=== PATIENT | female | born 1980 | race Caucasian/White ===

== ENCOUNTER 2018-01-04 22:02 | Emergency (ER) | payer OTHER ==
[2018-01-04] MEDS ORDERED: IBUPROFEN 400 MG TAB ONE (22:40)
--- NOTE | 2018-01-04 22:43 | ER ---
Nurse's Notes [facility] Name: Steph Gr Age: 37 yrs Sex: Female : 1980 Arrival Date: 01/04/2018 Time: 22:03 Bed 17 Private MD: Zaira Chris H Diagnosis: Sprain of ankle-Right Presentation: 01/04 22:13 Presenting complaint: Patient states: approx 90 minutes ago she fell injuring her right bb ankle denies hitting her head or LOC. Transition of care: patient was not received from another setting of care. Onset of symptoms was January 04, 2018. Risk Assessment: Do you want to hurt yourself or someone else? Patient reports no desire to harm self or others. Initial Sepsis Screen: Does the patient meet any 2 criteria? No. Patient's initial sepsis screen is negative. Does the patient have a suspected source of infection? No. Patient's initial sepsis screen is negative. Care prior to arrival: None. 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 - Social history:: Smoking status: Patient/guardian denies using tobacco, Patient/guardian denies using alcohol, street drugs. - Ebola Screening: : No symptoms or risks identified at this time. Screenin:21 Abuse screen: Denies threats or abuse. Denies injuries from another. Nutritional cc3 screening: No deficits noted. Tuberculosis screening: No symptoms or risk factors identified. Fall Risk Fall in past 12 months (25 points). Ambulatory Aid- Crutches/Cane/Walker (15 pts). Gait- Weak (10 pts.). Mental Status- Oriented to own ability (0 pts). Assessment: 22:21 General: Appears in no apparent distress. comfortable, Behavior is calm, cooperative, cc3 appropriate for age. Pain: Complains of pain in right foot and ankle pain Quality of pain is described as aching. Neuro: Level of Consciousness is awake, alert, obeys commands, Oriented to person, place, time, situation, Appropriate for age. Cardiovascular: Denies chest pain. Respiratory: Airway is patent Respiratory effort is even, unlabored, Respiratory pattern is regular, symmetrical. GI: Abdomen is round non-distended. : No signs and/or symptoms were reported regarding the genitourinary system. EENT: No signs and/or symptoms were reported regarding the EENT system. Derm: Skin is intact, Skin is dry. Musculoskeletal: Reports pain in right foot and ankle pain. 22:55 Reassessment: Patient appears in no apparent distress at this time. Patient and/or cc3 family updated on plan of care and expected duration. Pain level reassessed. Patient is alert, oriented x 3, equal unlabored respirations, skin warm/dry/pink. Patient discharged home with prescription given. No IV cannula in situ. Patient left ER vitally stable using her own assistive walking device and with her friend. Vital Signs: 22:17 BP 154 / 86; Pulse 110; Resp 18 S; Temp 99.1(O); Pulse Ox 100% on R/A; Weight 67.59 kg bb (R); Height 5 ft. 6 in. (167.64 cm) (R); Pain 7/10; 22:17 Body Mass Index 24.05 (67.59 kg, 167.64 cm) bb ED Course: 22:03 Patient arrived in ED. ds1 22:03 Zaira Chris DO is Private Physician. ds1 22:13 Triage completed. bb 22:17 Arm band placed on Patient placed in an exam room, on a stretcher, on pulse oximetry. bb Affected limb iced. Affected limb elevated. 22:18 X-ray ordered. bb 22:21 Arvin Block, RN is Primary Nurse. bp 22:21 Patient has correct armband on for positive identification. Bed in low position. Call cc3 light in reach. Side rails up X 1. Adult w/ patient. 22:24 Hesham Ontiveros PA is PHCP. cp 22:24 Hesham Jenkins MD is Attending Physician. cp 22:24 XRAY Ankle RIGHT 3 view In Process Unspecified. EDMS 22:41 Judd Harkins MD is Referral Physician. cp 22:55 No provider procedures requiring assistance completed. Patient did not have IV access cc3 during this emergency room visit. Administered Medications: 22:35 Drug: Ibuprofen 800 mg Route: PO; cc3 22:50 Follow up: Response: No adverse reaction; Pain is decreased cc3 Outcome: 22:42 Discharge ordered by MD. cp 22:55 Discharged to home with friend. cc3 22:55 Condition: stable 22:55 Discharge instructions given to patient, friend, Instructed on discharge instructions, follow up and referral plans. medication usage, Demonstrated understanding of instructions, follow-up care, medications, Prescriptions given X 1. 23:06 Patient left the ED. cc3 Signatures: Dispatcher [employer] EDNM Bautista Ne ds1 Candy Redmond, RN RN bb Hesham Ontiveros, Arvin Franklin cp, RN RN bp Mitzi Damon cc3
--- NOTE | 2018-01-04 22:43 | EDPHYS ---
Physician Documentation [facility] Name: Steph Gr Age: 37 yrs Sex: Female : 1980 Arrival Date: 01/04/2018 Time: 22:03 Bed 17 Private MD: Zaira Chris H ED Physician Hesham Jenkins HPI: 01/04 22:30 This 37 yrs old Female presents to ER via Ambulatory with complaints of Fall cp Injury. 22:30 Details of fall: The patient fell from an upright position, while walking. Onset: The cp symptoms/episode began/occurred today. Associated injuries: The patient sustained right ankle. Severity of symptoms: in the emergency department the symptoms are unchanged. 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 - Social history:: Smoking status: Patient/guardian denies using tobacco, Patient/guardian denies using alcohol, street drugs. - Ebola Screening: : No symptoms or risks identified at this time. ROS: 22:35 Constitutional: Negative for body aches, chills, fever, poor PO intake. cp 22:35 Eyes: Negative for injury, pain, redness, and discharge. cp 22:35 Neck: Negative for pain with movement, pain at rest, stiffness. 22:35 Respiratory: Negative for cough, shortness of breath, wheezing. 22:35 Abdomen/GI: Negative for abdominal pain, nausea, vomiting, and diarrhea. 22:35 Back: Negative for pain at rest, pain with movement, radiated pain. 22:35 MS/extremity: Positive for pain, tenderness, of the right ankle. 22:35 All other systems are negative. Exam: 22:39 Head/Face: Normocephalic, atraumatic. cp 22:39 Constitutional: The patient appears in no acute distress, alert, awake, well developed, well nourished. 22:39 Eyes: Periorbital structures: appear normal, Conjunctiva: normal, no exudate, no injection, Lids and lashes: appear normal, bilaterally. 22:39 ENT: External ear(s): are unremarkable, Nose: is normal, Mouth: Lips: moist, Oral mucosa: moist, Posterior pharynx: is normal, airway is patent. 22:39 Chest/axilla: Inspection: normal. 22:39 Cardiovascular: Rate: tachycardic, Rhythm: regular. 22:39 Respiratory: the patient does not display signs of respiratory distress, Respirations: normal, no use of accessory muscles, no retractions, no splinting, no tachypnea, labored breathing, is not present. 22:39 Abdomen/GI: Exam negative for discomfort, distension, guarding, Inspection: abdomen appears normal. 22:39 Musculoskeletal/extremity: Extremities: grossly normal except: noted in the right ankle: pain, tenderness, There is no evidence of decreased ROM, deformity, Perfusion: the extremity is normally perfused throughout, Sensation intact. 22:39 Skin: cellulitis, is not appreciated, no rash present. Vital Signs: 22:17 BP 154 / 86; Pulse 110; Resp 18 S; Temp 99.1(O); Pulse Ox 100% on R/A; Weight 67.59 kg bb (R); Height 5 ft. 6 in. (167.64 cm) (R); Pain 7/10; 22:17 Body Mass Index 24.05 (67.59 kg, 167.64 cm) bb MDM: 22:24 Patient medically screened. cp 22:30 Differential diagnosis: fracture, sprain, dislocation. cp 22:41 Data reviewed: vital signs, nurses notes, radiologic studies, plain films. cp 22:41 Test interpretation: by ED physician or midlevel provider: plain radiologic studies. cp Counseling: I had a detailed discussion with the patient and/or guardian regarding: the historical points, exam findings, and any diagnostic results supporting the discharge/admit diagnosis, radiology results, to return to the emergency department if symptoms worsen or persist or if there are any questions or concerns that arise at home. Response to treatment: the patient's symptoms have mildly improved after treatment, and as a result, I will discharge patient. 01/04 22:10 Order name: XRAY Ankle RIGHT 3 view bb 01/04 22:34 Order name: Aircast Ankle Splint; Complete Time: 22:54 cp 01/04 22:34 Order name: Neo wrap-joint; Complete Time: 22:54 cp Administered Medications: 22:35 Drug: Ibuprofen 800 mg Route: PO; cc3 22:50 Follow up: Response: No adverse reaction; Pain is decreased cc3 Disposition: 01/05 06:43 Co-signature as Attending Physician, Hesham Jenkins MD I agree with the assessment and beto plan of care. Disposition: 01/04/18 22:42 Discharged to Home. Impression: Sprain of ankle - Right. - Condition is Stable. - Discharge Instructions: Ankle Sprain. - Prescriptions for Anaprox DS 550 mg Oral Tablet - take 1 tablet by ORAL route every 12 hours As needed; 20 tablet. - Medication Reconciliation Form, Thank You Letter, Antibiotic Education, Prescription Opioid Use form. - Follow up: Judd Harkins MD; When: 1 week; Reason: pain continues. - Problem is new. - Symptoms have improved. Signatures: Dispatcher [employer] [facility] Hesham Jenkins MD MD cha Ballard, Brenda, RN RN bb Hesham Ontiveros PA PA Mitzi Fields cc3 Corrections: (The following items were deleted from the chart) 01/04 22:49 22:31 Foot Right 3 View+RAD.RAD.BRZ ordered. [facility] 23:06 22:42 01/04/2018 22:42 Discharged to Home. Impression: Sprain of ankle - Right. cc3 Condition is Stable. Forms are Medication Reconciliation Form, Thank You Letter, Antibiotic Education, Prescription Opioid Use. Follow up: Judd Harkins; When: 1 week; Reason: pain continues. Problem is new. Symptoms have improved. cp
--- NOTE | 2018-01-05 08:41 | RAD REPORT ---
EXAM DESCRIPTION: RAD - Ankle Right 3 View - 01/04/2018 10:29 pm CLINICAL HISTORY: Fall, ankle pain COMPARISON: None. FINDINGS: No fracture, dislocation or periosteal reaction. No joint effusion seen. No joint space na rrowing. No soft tissue abnormality. IMPRESSION: Negative right ankle
== END 2018-01-04 23:06 | disposition home or self-care (01) ==
LOC: ER 22:02
DX: S93.401A Sprain of unspecified ligament of right ankle, initial encounter (principal); W19.XXXA Unspecified fall, initial encounter; Y93.01 Activity, walking, marching and hiking; Y92.9 Unspecified place or not applicable; F90.9 Attention-deficit hyperactivity disorder, unspecified type; F32.9 Major depressive disorder, single episode, unspecified
CPT/HCPCS: 99284

== ENCOUNTER 2022-10-19 18:28 | Observation (INO) | payer OTHER ==
--- OUTSIDE RECORDS SUMMARY | 2022-10-19 18:36 | XMS REPORT | Continuity of Care Document ---
:1980 Author Organization [facility] t Address [address] [place] [address] [address] [place] [address] Care Team Providers Name Role Phone Pcp, Patient Does Not Have A Primary Care Physician +[id number] Doctor Unassigned, [place] Attending Clinician Unavailable Rip Coe RN Attending Clinician Unavailable Only, Ang Db Test Attending Clinician Unavailable Loretta Portillo MD Attending Clinician LORETTA PORTILLO Attending Clinician Unavailable Payers Payer Name Policy Type Policy Number Effective Date Expiration Date S ource Problems This patient has no known problems. Allergies, Adverse Reactions, Alerts Allergy Allergy Status Severity Reaction(s) Onset Inactive Treating Comm ents Source Name Type Date Date Clinician NO KNOWN Drug Active [facility]ERGIE Class ity of [facility] Social History Social Habit Start Date Stop Date Quantity Comments Source Exposure to Not sure [facility] SARS-CoV-2 (event) Medica l Branch Sex Assigned At [birth year] [facility] 00:00:00 00:00:00 [facility] Smoking Status Start Date Stop Date Source Unknown if ever smoked [facility] Medications This patient has no known medications. Procedures Procedure Date / Time Performed Performing Clinician Sour e ASSIGNMENT OF BENEFITS 2020-12-06 22:23:29 Doctor Unassigned, No [facility] Branch Encounters Start End Encounter Admission Attending Care Care Encounter Source Date/Time Date/Time Type Type Clinicians Facility Department ID 2021-04-13 2021-04-13 Letter Doctor SEPULVEDA [id number] [facility] 00:00:00 00:00:00 (Out) Unassigned, WOOD [id number] [facility] of [facility] [id number] Car as [phone] [facility] 044 Branch 2021-04-13 2021-04-13 Letter Doctor COCO [id number] Univers 00:00:00 00:00:00 (Out) Unassigned, WOOD [id number] [facility]y of [facility] [id number] Car as [phone] [facility] 044 Branch 2020-12-09 2020-12-09 Telephone CarolinCOCO [id number] Univers 00:00:00 00:00:00 Aneatrice WOOD [id number] ity of HOSPITAL [id number] Car as [phone] [facility] 019 Branch 2020-12-06 2020-12-06 Laboratory Only, Ang Db Test [facility] [id number] Univers 17:26:05 17:41:05 Only Loretta Portillo [facility] [id number] ity of [place] [id number] Car as Wilfredo?Blea [phone] [address] Medical [facility] 2020-12-06 2020-12-06 Outpatient R [facility] [id number] Univers 17:00:00 17:00:00 LORETTA ity of [facility] 2020-12-06 2020-12-06 Orders Doctor COCO [id number] Univers 00:00:00 00:00:00 Only Unassigned, WOOD [id number] ity of [facility] [id number] Car as [phone] [facility] 009 Branch Results This patient has no known results.
[2022-10-19] MEDS ORDERED: ACETAMINOPHEN 325 MG TABLET PO PRN (20:11)
[2022-10-19] MEDS ORDERED: DIPHENHYDRAMINE 25 MG TAB/CAP PO PRN (20:13)
[2022-10-19] MEDS ORDERED: LOPERAMIDE HCL 2 MG CAPSULE PO PRN (20:14)
[2022-10-19] MEDS ORDERED: ONDANSETRON 4 MG/2 ML VIAL IV PRN (20:14)
[2022-10-19] MEDS ORDERED: POLYETHYL GLY 3350 17 GM/DOSE PO PRN (20:15)
--- NOTE | 2022-10-19 20:50 | RAD REPORT ---
EXAM DESCRIPTION: RAD - Chest Single View - 10/19/2022 8:45 pm CLINICAL HISTORY: protocol on admission Chest pain. COMPARISON: Chest Pa And Lat (2 Views) dated 09/03/2020; CHEST SINGLE VIEW dated 02/21/2011; CHEST PA AND LAT 2 VIEW dated 06/25/2001 FINDINGS: Portable technique limits examination quality. The lungs are grossly clear. The heart is normal in size. No displaced fractures. IMPRESSION: No acute intrathoracic process suspected.
[2022-10-19 20:54] VITALS: BMI 24.3
[2022-10-19 21:08] LABS: Absolute Lymphocytes (CBC) 1.6 K/uL (0.7-4.9); Hematocrit 27.4 % (36.0-45.0); Lymphocytes % 18.7 % (15.3-44.8); MCV 64.1 fL (80-100); MPV 6.8 fL (7.6-11.3); RBC Red Blood Cell Count 4.27 M/uL (3.86-4.86)
[2022-10-19 21:45] LABS: ALT/SGPT 22 U/L (13-56); AST/SGOT 16 U/L (15-37); Alkaline Phosphatase 68 U/L (45-117); BUN Blood Urea Nitrogen 16 mg/dL (7-18); Bicarbonate 28 mEq/L (21-32); Bilirubin Total 0.3 mg/dL (0.2-1.0); Ferritin 4.1 ng/mL (8-388); Glomerular Filtration Rate 79 ml/min (=/>90); Glucose Level 94 mg/dL (74-106); Magnesium 2.4 mg/dL (1.6-2.4); Phosphorus 4.8 mg/dL (2.5-4.9); Potassium 3.7 mEq/L (3.5-5.1); Protein, Total 8.6 g/dL (6.4-8.2); Sodium Level 133 mEq/L (136-145)
[2022-10-19 21:46] LABS: Bilirubin Direct < 0.1 mg/dL (0-0.2); Bilirubin Indirect, Calculated ND mg/dL (0.2-0.8)
[2022-10-19] MEDS ORDERED: NA CHLORIDE 0.9% 100 ML ONE (23:02)
[2022-10-20] MEDS ORDERED: NA CHLORIDE 0.9% 100 ML ONE (02:57)
[2022-10-20 03:00] LABS: Absolute Lymphocytes (CBC) 1.9 K/uL (0.7-4.9); Hematocrit 31.6 % (36.0-45.0); Lymphocytes % 24.2 % (15.3-44.8); MCV 67.9 fL (80-100); MPV 6.8 fL (7.6-11.3); RBC Red Blood Cell Count 4.65 M/uL (3.86-4.86)
[2022-10-20 03:18] LABS: Magnesium 2.5 mg/dL (1.6-2.4); Potassium 3.8 mEq/L (3.5-5.1)
[2022-10-20 03:43] LABS: White Blood Cell Scan OK (OK)
[2022-10-20 03:44] LABS: Anisocytosis 3+; Blood Morphology Comment NOTED (NOT SEEN); Hypochromasia 1+; Platelet Estimate INCR; Poikilocytosis 1+
[2022-10-20] MEDS ORDERED: NACHLORIDE 0.45% 1,000 ML IV SCH (07:00)
[2022-10-20 09:02] VITALS: BP 127/76; TEMP 97.1
--- NOTE | 2022-10-20 15:40 | P.DS ---
Admission Date: 10/19/22 Discharge Date: 10/20/22 Disposition: ROUTINE DISCHARGE Discharge Condition: [facility] Hospital Course: EL HAS RECENTLY HAS HAD HG OF DOWN TO6.8 DONE FOR HER OTHER PROVIDER. THIS WAS NOT TREATED. SHE IS SHORT OF BREATH, FATIGUED AND PALE. I SUSPECTED SHE WILL HAVE LOWER HG BUT SHE HAD SLIGHTLY HIGHER AND WITH HER SYMPTOMS WE DECIDED TO TRANSFUSE HER. SHE IS FEELING A LOT BETTER AFTER 2 UNITS OF BLOOD. SHE WILL MAKE APT WITH DR. SALEH FOR MENORRHAGEA. Vital Signs/Physical Exam: Temp Pulse Resp BP Pulse Ox 97.1 F 90 18 127/76 100 10/20/22 08:00 10/20/22 08:00 10/20/22 08:00 10/20/22 08:00 10/20/22 08:00 Laboratory Data at Discharge: WBC 7.90 thou/uL (4.3-10.9) 10/20/22 02:44 Hgb 9.6 g/dL (12.0-15.0) L D 10/20/22 02:44 Hct 31.6 % (36.0-45.0) L 10/20/22 02:44 Plt Count 542 thou/uL (152-406) H 10/20/22 02:44 APTT 32.4 SECONDS (21.7-34.4) 10/19/22 20:50 Sodium 135 mEq/L (136-145) L 10/20/22 02:44 Potassium 3.8 mEq/L (3.5-5.1) 10/20/22 02:44 BUN 15 mg/dL (7-18) 10/20/22 02:44 Creatinine 0.85 mg/dL (0.55-1.02) 10/20/22 02:44 Glucose 99 mg/dL (74-106) 10/20/22 02:44 Phosphorus 4.8 mg/dL (2.5-4.9) 10/19/22 20:50 Magnesium 2.5 mg/dL (1.6-2.4) H 10/20/22 02:44 Total Bilirubin 0.3 mg/dL (0.2-1.0) 10/19/22 20:50 AST 16 U/L (15-37) 10/19/22 20:50 ALT 22 U/L (13-56) 10/19/22 20:50 Alkaline Phosphatase 68 U/L (45-117) 10/19/22 20:50 Home Medications: Aripiprazole [Abilify] 1 tab PO BEDTIME 10/19/22 Duloxetine HCl 1 cap PO BEDTIME 10/19/22 Lisdexamfetamine Dimesylate [Vyvanse] 1 tab PO DAILY 10/19/22 Trazodone HCl 2 tab PO BEDTIME 10/19/22 Followup: Geovanni Hill MD [ACTIVE - CAN ADMIT] - 1 Week (call to schedule appointment )
== END 2022-10-20 09:00 | disposition home or self-care (01) ==
LOC: ERHOLD 18:28 → 2ND 18:44
PROVIDERS: ADMIT Internal Medicine; ATTEND Internal Medicine
DX: D50.0 Iron deficiency anemia secondary to blood loss (chronic) (principal); N92.0 Excessive and frequent menstruation with regular cycle; R06.02 Shortness of breath; R53.83 Other fatigue
CPT/HCPCS: 36430; 85025 ×2; 80048 ×2; 36415 ×2; 86900; 83735 ×2; 86850; 84100; 86901; 80076; 85730; 86920 ×2; 84443; 84439; 82728; 82607; 82306; 71045; P9016 ×2; G0378

== ENCOUNTER → 2023-06-29 | Emergency (ER) | payer OTHER ==
[~2023-06-29] MED LIST: FAMOTIDINE 20 MG/2 ML VIAL IV ONE; KETOROLAC 30 MG/ML INJ ONE; MORPHINE 2 MG/ML SYR ONE; NA CHLORIDE 0.9% 1,000 ML ONE; ONDANSETRON 4 MG/2 ML VIAL ONE; dexAMETHasone 10 MG/ML VIAL ONE
--- OUTSIDE RECORDS SUMMARY | 2023-06-29 16:16 | XMS REPORT | Continuity of Care Document ---
Author Name Unknown Address [address] [facility] [address] [place] [address] [facility] thconnect Address [address] [facility] [place] [address] Care Team Providers Care Medical Manager Name Role Phone Pcp, Patient Does Not Have A Primary Care Physic elisha GC_GCBZW_McIntire_E Attending Clinician Unavaila ble Stacie Singh Attending Clinician Unavaila ble Doctor Unassigned, [place] Attending Clinician U trice Coe RN, Rip Attending Clinician Unavailab le Only, Ang Db Test Attending Clinician Unavailabl jenny Portillo MD, Loretta Attending Clinician LORETTA PORTILLO Attending Clinician Unavailable GC_GCBZW_McIntire_E Admitting Clinician Unavaila ble Stacie Singh Admitting Clinician Unavaila ble Payers Payer Name Policy Type Policy Number Effective Date Expirati on Date Source [place]ICARE [place]: [employer] [id number] 2010 00:00:00 Allergies, Adverse Reactions, Alerts Allergy Name Allergy Type Status Severity Reaction(s) Onset Date Inactive Date Treating Clinician Comments Source No Known Drug Allergie s DA Active U UNKNOWN 04-22 00:00: 00 [facility] NO KNOWN ALLERGIE S Drug Class Active [facility] Social History Social Habit Start Date Stop Date Quantity Comments Source Exposure to SARS-CoV-2 (event) Not sure [facility] Sex Assigned At 1980 00:00:00 1980 00:00:00 [facility] Smoking Status Start Date Stop Date Source [facility] Procedure Date / Time Performed Performing Clinicia n Source ASSIGNMENT OF BENEFITS 2020-12-06 22:23:29 Docto r Unassigned, [place] [facility] Encounters Start Date/Time End Date/Time Encounter Type Admission Type Attending [facility] Facility Care Department Encounter ID Source 2023-05-12 00:00:00 2023-05-12 00:00:00 Outpatient GC_GCBZ[facility]_E PRIV PRIV [id number] [facility] 2023-04-14 00:00:00 2023-04-14 00:00:00 Outpatient GC_GCBZW_Mc Int[facility]_E PRIV PRIV [id number] [facility] 2023-03-17 00:00:00 2023-03-17 00:00:00 Outpatient GC_GCBZW_Mc Intire_E PRIV PRIV [id number] [facility] 2023-02-10 00:00:00 2023-02-10 00:00:00 Outpatient GC_GCBZW_Mc Intire_E PRIV PRIV [id number] [facility] 2023-01-13 00:00:00 2023-01-13 00:00:00 Outpatient GC_GCBZW_Mc Int[facility]_E PRIV PRIV [id number] [facility] 2022-12-27 00:00:00 2022-12-27 00:00:00 Outpatient GC_GCBZW_Mc Int[facility]_E PRIV PRIV [id number] [facility] 2022-12-27 00:00:00 2022-12-27 00:00:00 Outpatient GC_GCBZW_Mc Intire_E PRIV PRIV [id number] [facility] 2022-12-16 00:00:00 2022-12-16 00:00:00 Outpatient GC_GCBZW_Mc Intire_E PRIV PRIV [id number] [facility] 2022-11-23 07:48:00 2022-11-23 07:48:00 Outpatient Stacie Angel [facility] [id number] 2022-11-21 00:00:00 2022-11-21 00:00:00 Outpatient GC_GCBZW_Mc Intire_E PRIV PRIV [id number] [facility] 2022-11-11 00:00:00 2022-11-11 00:00:00 Outpatient GC_GCBZW_Mc Intire_E PRIV PRIV [id number] [facility] 2022-11-11 00:00:00 2022-11-11 00:00:00 Outpatient GC_GCBZW_Mc Intire_E PRIV PRIV [id number] [facility] 2022-11-10 00:00:00 2022-11-10 00:00:00 Outpatient GC_GCBZW_Mc Intire_E PRIV PRIV [id number] [facility] 2022-11-09 00:00:00 2022-11-09 00:00:00 Outpatient GC_GCBZW_Mc Intire_E PRIV PRIV [id number] [facility] 2022-11-02 00:00:00 2022-11-02 00:00:00 Outpatient GC_GCBZW_Mc Intire_E PRIV PRIV [id number] [facility] 2022-10-25 00:00:00 2022-10-25 00:00:00 Outpatient GC_GCBZW_Mc Intire_E PRIV PRIV [id number] [facility] 2022-10-25 00:00:00 2022-10-25 00:00:00 Outpatient GC_GCBZW_Mc Intire_E PRIV PRIV [id number] [facility] 2022-10-24 00:00:00 2022-10-24 00:00:00 Outpatient GC_GCBZW_Mc Intire_E PRIV PRIV [id number] [facility] 2022-10-20 00:00:00 2022-10-20 00:00:00 Outpatient GC_GCBZW_Mc Intire_E [facility] [id number] [facility] 2021-04-13 00:00:00 2021-04-13 00:00:00 Letter (Out) Doctor Unassigned, [place] [facility] [id number] 4.2.7.2.686 [id number] [facility] 2021-04-13 00:00:00 2021-04-13 00:00:00 Letter (Out) Doctor Unassigned, [place] [facility] 1.2840.114 350.1.13.10 4.2.7.2.686 [id number] [facility] 2020-12-09 00:00:00 2020-12-09 00:00:00 Telephone Rip Coe [facility] 1.2840.114 350.1.13.10 4.2.7.2.686 [id number] [facility] 2020-12-06 17:26:05 2020-12-06 17:41:05 Laboratory Only Only, Ang Db Test [facility] 1.2840.114 350.1.13.10 4.2.7.2.686 [id number] [facility] 2020-12-06 17:00:00 2020-12-06 17:00:00 Outpatient R LORETTA PORTILLO [facility] [id number] [facility] 2020-12-06 00:00:00 2020-12-06 00:00:00 Orders Only Doctor Unassigned, [place] [facility] 1.2840.114 350.1.13.10 4.2.7.2.686 [id number] [facility] Results Test Description Test Time Test Comments Results Result Co mments Source CBC W/AUTO [id number] 15:04:00* Test Item Value Reference Range Interpretation Comme nts WHITE BLOOD CELL (test code = WBC) 5.7 K/mm3 3.5-11.0 N RED BLOOD CELL (test code = RBC) 4.26 M/mm3 4.70-6.10 L HEMOGLOBIN (test code = HGB) 9.9 G/DL 10.4-14.9 L HEMATOCRIT (test code = HCT) 32.6 % 31.5-44.1 N MEAN CELL VOLUME (test code = MCV) 76.5 Fl 84.5-98.6 L MEAN CELL HGB (test code = MCH) 23.2 pg 27.0-34.2 L MEAN CELL HGB CONCETRATION (test code = MCHC) 30.4 G/DL 31.5-34.0 L RED CELL DISTRIBUTION WIDTH (test code = RDW) 27.3 SD 11.5-14.5 H PLATELET COUNT (test code = PLT) 373 K/mm3 150-450 N MEAN PLATELET VOLUME (test c ode = MPV) 8.90 fL 7.0-10.5 N NEUTROPHIL % (test code = NT%) 61.4 % 40-76 N IMMATURE GRANULOCYTE % (test code = IG%) 0.4 % 0.0-5.0 N LYMPHOCYTE % (test code = LY%) 26.5 % 20.5-51.1 N MONOCYTE % (test code = MO%) 9.7 % 1.7-9.3 H EOSINOPHIL % (test code = EO%) 1.1 % 0.0-6.0 N BASOPHIL % (test code = BA%) 0.9 % 0.0-2.0 N NUCLEATED RBC % (test code = NRBC%) 0.0 /100WBC% 0.0-1.0 N NEUTROPHIL # (test code = NT#) 3.5 K/mm3 1.8-7.6 N IMMATURE GRANULOCYTE # (test code = IG#) 0.02 x10 3/uL 0.00-0.03 N LYMPHOCYTE # (test code = LY#) 1.5 K/mm3 0.6-3.2 N MONOCYTE # (test code = MO#) 0.6 K/mm3 0.3-1.1 N EOSINOPHIL # (test code = EO#) 0.1 K/mm3 0.0-0.4 N BASOPHIL # (test code = BA#) 0.1 K/mm3 0.0-0.1 N NUCLEATED RBC # (test code = NRBC#) 0.0 K/mm3 0.0-0.1 N MANUAL DIFF REQUIRED (test c ode = MDIFF) NO DIFF/SCN CRITERIA RBC [id number] 15:04:00* Test Item Value Reference Range Interpretation Comme nts POIKILOCYTOSIS (test code = POIK) TRACE ON SCAN NONE ANISOCYTOSIS (test code = ANISO) 2+ NONE A PLATELET ESTIMATE (test code = PLTEST) ADEQUATE THOUSAND ADEQUATE PLATELET MORPHOLOGY (test code = PLTMORPH) NORMAL BASIC METABOLIC [id number] 11:46:00* Test Item Value Reference Range Interpretation Comme nts SODIUM (test code = NA) 138 mmol/L 134-147 N POTASSIUM (test code = K) 3.7 mmol/L 3.4-5.0 N CHLORIDE (test code = CL) 102 mmol/L 100-108 N CARBON DIOXIDE (test code = CO2) 31 mmol/L 21-32 N ANION GAP (test code = GAP) 5.0 GAP calc 4.0-15.0 N GLUCOSE (test code = GLU) 105 MG/DL 70-110 N BLOOD UREA NITROGEN (test code = BUN) 20 MG/DL 7-18 H GLOMERULAR FILTRATION RATE (test code = GFR) >=60 max estimate estGFR >60 The Glomerular Filtration Rate is a calculated parameterbased on serum Creatinine, patient age and sex. GFR valuesless than 60 mL/min/1.73 square meters are indicative ofChronic Kidney Disease. Values less than 15 mL/min/1.73square meters indicate Kidney failure. The calculation forGFR is based on the CKD-EPI (202) calculation. This formulais race indifferent and is the recommended formula for GFRby the National Kidney Foundation for Adults.The GFR will not calculate if the sex is unknown or if thepatient's age is <18 years. CREATININE (test code = CREAT) 0.9 MG/DL 0.6-1.0 N CALCIUM (test code = CA) 9.1 MG/DL 8.5-10.1 N URINALYSIS [id number] 11:33:00* Test Item Value Reference Range Interpretation Comme nts UA GLUCOSE DIPSTICK (test code = DGLUU) NEGATIVE mg/dL NEG UA BILIRUBIN DIPSTICK (test code = BILU) NEGATIVE mg/dL NEG UA KETONE DIPSTICK (test code = KETU) NEGATIVE mg/dL NEG UA SPECIFIC GRAVITY (test code = SGU) 1.025 SG 1.005-1.030 UA BLOOD DIPSTICK (test code = LILY) NEGATIVE mg/DL NEG UA PH DIPSTICK (test code = NAUN) 6.5 pH UNITS 5.0-7.0 UA PROTEIN DIPSTICK (test code = PROU) NEGATIVE mg/dL NEG UA UROBILINIOGEN DIPSTICK (test code = URO) 1.0 mg/dL <2.0 UA NITRITE DIPSTICK (test code = SUN) NEGATIVE SCREEN NEG UA LEUKOCYTE ESTERASE DIPSTICK (test code = LEUU) NEGATIVE Leuk/mcL NEGATIVE Urine Specimen Type: Clean CatchUR HCG [id number] 11:33:00* Test Item Value Reference Range Interpretation Comme nts UR HCG QUAL (test code = HCGQLU) NEGATIVE NEGATIVE Urine Specimen Type: Clean Catch Notes Date/Time Note Provider Source 2022-11-24 04:24:00 [id number]:24:67130 8-[address] [place] [address] PATIENT NAME: EL MUIR ADMIT DATE: 11/23/22ACCOUNT NO: [id number] ROOM NO: AGE: 42 REPORT TYPE: OPERATIVE REPORT SEX: F ADMITTING PHYSICIAN: ATTENDING PHYSICIAN: Stacie Singh MD OPERATION DATE: 11/23/2022 PREOPERATIVE DIAGNOSES:1. Menorrhagia.2. Anemia. POSTOPERATIVE DIAGNOSES:1. Menorrhagia.2. Anemia.3. Left ovarian cyst.4. Bladder adhesions. PROCEDURES PERFORMED: Robotic-assisted total laparoscopic hysterectomy,bilateral salpingectomy, left oophorectomy, right ovariopexy, repair of asuperficial bladder laceration. SURGEON: Stacie Singh M.D. ACTUARIAL ASSISTANT: Ailyn Shelby. ANESTHESIA: General. FINDINGS: Bladder adhesions significant, superficial injury to the bladder wasrecognized after the bladder was taken down to expose the anterior vaginalwall. Therefore, this was closed with 3-0 Monocryl in two layers. Retrogradefilling saline and methylene blue test were done with no leak before and afterthe repair. Cystoscopy was negative with no mucosal injury or any evidence ofsuture in the bladder. Both ureteral orifices were visualized and had good jetsof urine from both of them. Small epithelial trigone no change. Slightlyirregular surface lesion is noted. Plan for cystoscopy in 3 months postop, andif it is still abnormal, refer to Urology. Right ovary was normal. The leftovary had a large cystic mass about 4 cm with cystic change in the the surfaceepithelium, and therefore, decided to remove this ovary and the cyst intactwithout rupture. COMPLICATIONS: Superficial bladder laceration. ESTIMATED BLOOD LOSS: 50 mL. SPECIMENS: Uterus, bilateral tubes, left ovary with the mass intact. FLUIDS: 1500 mL. PATIENT NAME: EL MUIR URINE OUTPUT: 200 mL. APPROACH: Laparoscopic using the robot. WOUND CLASS: Clean, contaminated. DISPOSITION: Home. INDICATIONS: The patient is a 42-year-old with the vaginal deliveries andcesarean at the end presented with heavy menstrual bleeding with history ofsignificant anemia and transfusion. There is recurrent anemia from ongoingbleeding. Ultrasound was performed. Her uterus appeared to be extremelyelongated and suspected to be scarred. No other significant pathologicalchanges on endometrial sampling, atypia or malignancy. Discussed about alldifferent options including conservative treatment options and surgical optionsand medical options. She consented for hysterectomy and bilateralsalpingectomy, preservation of ovarian function consented and brought to the OR.Bleeding, infection, injury to the bowel, bladder and ureters were all reviewedwith the patient and postop instructions. was present at the time of thepreoperative discussion as well and questions were answered to theirsatisfaction. DESCRIPTION OF PROCEDURE: The patient was taken back to OR and placed on theoperating table in supine fashion. General anesthesia was given. Arms tuckedto the side. She was placed in dorsal lithotomy position. The abdomen wasprepped with ChloraPrep. Vulva, vagina, and perineum with Betadine, draped in asterile fashion. Two grams of Ancef were given. SCDs were started. Timeoutwas done and procedure was started. Speculum placed to expose the cervix. Anterior lip was grasped with 2 Allisclamps. Cervix dilated and a large VCare introduced into place and fixed inplace. Zavaleta was placed for drainage and attached to a gravity bag. This areawas draped. A 1 cm supraumbilical incision was made with a scalpel using open laparoscopytechnique. Fascia was incised, tagged with 0 Vicryl sutures. Peritoneumentered bluntly. S retractors placed. After metal 8 Ximena was introduced andfixed in place, adequate insufflation was done and site of entry was checked,which was unremarkable. Three 8 robotic ports were placed, one on the left andtwo on the right and a 10 mm 8 lumen trocar for AirSeal was placed in the leftlateral aspect. All these incisions in one line along the same protocol for Xirobot. The patient was placed in 23 degrees of Trendelenburg. Robot was dockedfrom the patient's right. Camera arm was attached, targeting was complete. Allarms were attached. Instruments inserted in the usual fashion. Fenestratedbipolar through arm #1 and Monopolar scissors through arm #2 and Xavi forcepsthrough arm #4. The tips were advanced under direct vision. Ports were burpedand then I went over to the console. On inspection, there was a large left ovarian cyst. Ureters were inspected fromthe pelvic brim to the ureteric tunnel. No evidence of endometriosis in thepelvis. The cystic change on the epithelial surface of the left ovary, whichhad the cystic mass. There were paratubal cysts as well. Therefore, decided toperform a left salpingo-oophorectomy and a right salpingectomy. ____ on the PATIENT NAME: EL MUIR left side to prevent torsion or pain, right ovariopexy was planned. Hysterectomy. The right mesosalpinx was cauterized and cut all the way to thecornual end. Uteroovarian ligament and round ligament were all taken down.Then, the peritoneum inferior to the right round ligament was opened up all theway to the bladder flap. The bladder was adhered to the anterior aspect of theuterus in a significant fashion. The peritoneal incision was made at thejunction of the bladder and uterus. Then, the dissection was performed in thefat to dissect the bladder off the lower part of the uterus on the right half ofthe anterior vaginal wall. On the contralateral side, the peritoneum was opened superior to the roundligament and laterally through the mesosalpinx. Dissection was performedparallel to the infundibulopelvic ligament on the peritoneum. Then, the ovaryand tube were retracted laterally. Peritoneal incision was made between the IPand the ureter after this was identified at the level of the pelvic brim.Isolating the IP ligament carefully from the ureter and ensuring that all thestructures and cysts of the tube and ovary were completely dissected off. Oncethe pedicle was created, dissection performed in the posterior peritoneal wallall the way to the round ligament. The round ligament was opened up on bothsides and taken down to the peritoneum. The posterior aspect was also takendown further the medial leaf of the broad ligament further down intothe pelvis and anteriorly all the way to the paravesical space. Then, the IPligament was cauterized and cut with the bipolar head scissors and the entirespecimen was detached from the sidewall. Dissection on the anterior peritoneum and the left half of the anterior vaginalwall. After entering the space, left paravesical. The bladder was opened up andadhesions were significantly dense and taken down with the help of sharpscissors and monopolar as needed. The bladder was dissected off the uterus andthe bladder laceration was noted due to this dissection. Bladder was retrogradefilled. No evidence of any leak; however, since there was detrusor laceration,decided to close this in 2 layers. A 3-0 Monocryl was used in a continuous running fashion from right to the left.This should be at the dome of the bladder. It was closed by imbricating thelaceration and then a second layer to re-imbricate this was done in a continuousrunning fashion. ____ was placed. Methylene blue was used to fill the bladderand checked again with 200 mL in the bladder. No evidence of any leakage andthe suture line was still very well concealing the laceration and repaired it. Attention was directed to clearing the anterior vaginal wall completely off thevaginal cuff. Once this was done and the vessels were exposed on both sides,posterior dissection of the peritoneum was done on the right as well. Thevessels at the level of the internal os were cauterized and cut. Then, cardinalligaments were dissected and taken down with the help of the monopolar scissorsand bipolar fenestrated grasper. Circumferential colpotomy performed with themonopolar tip of the scissors using a single time. Specimen was detached.Pulled out through the vagina along with the cyst. It was a tight fit, so I hadto go back to the patient's side and removed without rupture of the cyst. Vaginal occluder was placed and thorough irrigation and suction were performedat the level of the cuff and both ends were closed with simple 1-0 Vicrylsutures and then 2-0 V-Loc was used to close the cuff in a continuous running PATIENT NAME: EL MUIR fashion in two layers imbricating the vaginal incision. The pedicles werechecked and were all hemostatic. Ureters had no evidence of electrical,mechanical or thermal injury to them. Right ovariopexy: The right ovary was picked up and sutured to the base of theright round ligament using 1-0 Vicryl stitch in a buranp-ey-kgtyq fashion andsecured. All needles were removed. Instrument, needle and sponge counts herewere correct. Scrubbed back in to finish the closure of the ports under direct vision and thenremoved. The patient was leveled out. Gas was desufflated through the AirSeal. All ports were removed. Lee site was closed with the help of tagged 0Vicryl sutures tied to each other and all skin incisions closed with the help of4-0 Monocryl. The left 8 ports immediately lateral to the supraumbilical portwas bleeding in the subcutaneous tissue. It was difficult to stop and so 3-0chromic sutures were placed in a vertical mattress fashion x2, and there wasexcellent hemostasis after this. Zavaleta was removed. Vaginal occluder was removed. Cystoscopy was performed. Cystoscopy was performed with the help of 30-degree lens and normal saline.Excellent jets of urine were seen from both ureteric orifices. The smallsurface epithelial change or lesions was noted right in the middle of thetrigone and the upper border. It could be either a trauma from just the surfaceepithelial abrasion from the Zavaleta or it could be a transitional cellabnormality. The rest of the bladder was visualized very carefully afterdistention with a 300-350 of saline. No evidence of any injury or suture in thebladder. The entire bladder was inspected including the dome and sidewalls,above the trigone and the trigone itself. The scope was removed after bladderwas drained. Counts were correct. The patient was recovered from anesthesiaand taken to PACU in stable condition. EBL was 50 and was debriefedabout her procedure, her bladder laceration and the left ovarian cyst. She has a1-week followup appointment with us. She will have a voiding trial before . Counseled on bladder spasms and need for cystoscopy in 3 months with marco a her postop full recovery is complete. Dictated By: Stacie Singh MD Date Dictated: 11/24/2022 04:24:46Date Transcribed: 11/24/2022 07:09:31JOANNA/Nelly #: [id number] ID: [id number] and Edited by Stacie Singh MD On 11/27/22 8:03:26 AM at 0805 PATIENT NAME: EL MUIR [id number]:09:00L.[id number] lable for patient [id number]:05:55 [facility] 2022-11-23 15:25:00 [id number]:25:00 [facility] ([facility])Brief Op NoteREPORT#:[id number] REPORT STATUS: SignedDATE:11/23/22 TIME:1525 PATIENT: EL MUIR UNIT #: [id number]#: [id number] ROOM/BED:: 79 AGE: 42 SEX: F ATTEND: Stacie Singh MDADM AUTHOR: Stacie Singh MD * ALL edits or amendments must be made on the electronic/computer document * Op/Inv Proc Note - BriefPre-procedure diagnosis:Menorrhagia, anemiaPost-procedure diagnosis: same as pre procedure dx, adhesions, left ovarian cystProcedures performed:RTLH BS, Left oophorectomy, right ovariopexyPrimary Surgeon:Andrewt(s): ailyn Mortonesthesia: general anesthesiaFindings:bladder adhesions significant, superficial injury, 2 layer closure, methylene blue no leak before and after repair, cysto neg, ? trigonal epithelial change, cysto 3mon fu,right ovary normalComplications: noneEstimated blood loss in ml's: 50Specimens removed/altered: uterus bilat tubes, left ovay and massFluids:1500Urine output:200Approach: laparoscopic, robotWound class: clean/contaminatedDisposition: plan to D/C home at [address] [facility] #: [id number] OF REPORT OPOperative [id number]:25:00L.[id number] ilable for patient [id number]:29:56 HCAPM
[2023-06-29 16:43] LABS: Absolute Eosinophils 0.1 K/uL (0-0.5); Absolute Lymphocytes (CBC) 1.1 K/uL (0.7-4.9); Absolute Monocytes 0.5 K/uL (0.1-1.3); Absolute Neutrophil 5.1 K/uL (1.8-8.0); Basophils % 0.4 % (0-1.3); Eosinophils % 1.5 % (0-4.4); Hematocrit 32.9 % (36.0-45.0); Hemoglobin 11.2 g/dL (12.0-15.0); Lymphocytes % 16.2 % (15.3-44.8); MCH 29.2 pg (27.0-35.0); MCV 85.8 fL (80-100); MPV 6.5 fL (7.6-11.3); Monocytes % 7.5 % (3.3-12.3); Neutrophils % 74.4 % (41.7-73.7); Platelets 334 thou/uL (152-406); RBC Red Blood Cell Count 3.84 M/uL (3.86-4.86); Red Cell Distribution Width 17.9 % (12.1-15.2)
[2023-06-29 16:57] LABS: ALT/SGPT 13 U/L (13-56); AST/SGOT 7 U/L (15-37); Albumin 3.1 g/dL (3.4-5.0); Albumin/Globulin Ratio 0.9 (1.1-1.8); Alkaline Phosphatase 63 U/L (45-117); Anion Gap 5.9 mEq/L (5.0-15.0); BUN Blood Urea Nitrogen 11 mg/dL (7-18); Bicarbonate 32 mEq/L (21-32); Bilirubin Total 0.2 mg/dL (0.2-1.0); Globulin 3.6 g/dL (2.3-3.5); Glomerular Filtration Rate 82 ml/min (=/>90); Glucose Level 72 mg/dL (74-106); Lipase 31 U/L (13-75); Potassium 3.9 mEq/L (3.5-5.1); Protein, Total 6.7 g/dL (6.4-8.2); Sodium Level 139 mEq/L (136-145)
[2023-06-29 16:58] LABS: Troponin High Sensitivity < 3.0 pg/mL (<58.9)
--- NOTE | 2023-06-29 17:28 | RAD REPORT ---
EXAM DESCRIPTION: US - Abdomen Exam Limited - 06/29/2023 5:06 pm CLINICAL HISTORY: ABD PAIN COMPARISON: ABDOMINAL EXAM LIMITED dated 02/21/2011 FINDINGS: The gallbladder demonstrates no gallstones. There is gallbladder contraction. No perichole cystic fluid or gallbladder wall thickening. The common bile duct is normal measuring 3-4 mm. The liver demonstrates no findings of intrahepatic biliary dilatation. IMPRESSION: Unremarkable examination.
--- NOTE | 2023-06-29 17:43 | RAD REPORT ---
EXAM DESCRIPTION: RAD - Chest Single View - 06/29/2023 5:37 pm CLINICAL HISTORY: CHEST PAIN Chest pain. COMPARISON: Chest Single View dated 10/19/2022; Chest Pa And Lat (2 Views) dated 09/03/2020; CHEST SIN GLE VIEW dated 02/21/2011; CHEST PA AND LAT 2 VIEW dated 06/25/2001 FINDINGS: Portable technique limits examination quality. The lungs are grossly clear. The heart is normal in size. No displaced fractures. IMPRESSION: No acute intrathoracic process suspected.
[2023-06-29 17:49] LABS: Specific Gravity 1.008 (1.005-1.030); Sqamous Epithelial <5 /HPF (None Seen); Urine Bacteria <20 /HPF (<20); Urine Bilirubin NEGATIVE (Negative); Urine Blood Negative (Negative); Urine Clarity Clear (Clear); Urine Color Colorless (Yellow); Urine Culture Reflex Order NOT NEEDED; Urine Glucose NEGATIVE (Negative); Urine Ketones NEGATIVE (Negative); Urine Microscopic Reflex YN ORDER UMIC; Urine Nitrite NEGATIVE (Negative); Urine Protein NEGATIVE (Negative); Urine RBC <5 /HPF (None Seen); Urine Urobilinogen Normal (Normal); Urine WBC <5 /HPF (<5)
--- NOTE | 2023-06-29 18:58 | ER ---
Nurse's Notes [facility] Name: Steph Gr Age: 43 yrs Sex: Female : 1980 Arrival Date: 06/29/2023 Time: 16:13 Bed 2 Private MD: Diagnosis: Upper abdominal pain, unspecified Presentation: 06/28 16:12 Chief complaint: Patient states: "I started having right sided chest pain this morning mb9 and it hasn't improved. It got worse after I ate". Coronavirus screen: Vaccine status: Patient reports receiving the 2nd dose of the covid vaccine. 16:12 Method Of Arrival: Ambulatory mb9 16:12 Ebola Screen: No symptoms or risks identified at this time. Initial Sepsis Screen: Does mb9 the patient meet any 2 criteria? No. Patient's initial sepsis screen is negative. Does the patient have a suspected source of infection? No. Patient's initial sepsis screen is negative. Risk Assessment: Do you want to hurt yourself or someone else? Patient reports no desire to harm self or others. Onset of symptoms was June 29, 2023. 16:12 Acuity: ADRY 3 mb9 Triage Assessment: 16:29 General: Appears uncomfortable, Behavior is calm, cooperative. Pain: Complains of pain mb9 in chest Pain does not radiate. Pain currently is 8 out of 10 on a pain scale. Quality of pain is described as aching, dull, Pain began suddenly, Is continuous. EENT: No signs and/or symptoms were reported regarding the EENT system. Neuro: Fink Agitation-Sedation Scale (RASS): 0 - Alert and Calm Level of Consciousness is awake, alert, obeys commands, Oriented to person, place, time, situation, Appropriate for age. Cardiovascular: Reports chest pain, Heart tones S1 S2 present Patient's skin is warm and dry. Respiratory: Airway is patent Respiratory effort is even, unlabored, Respiratory pattern is regular, symmetrical, Breath sounds are clear bilaterally. GI: Abdomen is flat, non-distended, Bowel sounds present X 4 quads. Abd is soft and non tender X 4 quads. Patient currently denies nausea. : No signs and/or symptoms were reported regarding the genitourinary system. Derm: Skin is pink, warm \\T\\ dry. Musculoskeletal: Range of motion: intact in all extremities. Historical: - Allergies: 16:25 No Known Allergies; hb - PMHx: 16:25 ADD/ADHD; Anxiety; Depression; Lupus; hb - Immunization history:: Adult Immunizations up to date. - Social history:: Smoking status: Patient denies any tobacco usage or history of. Screenin:25 [facility] ED Fall Risk Assessment (Adult) History of falling in the last 3 months, hb including since admission No falls in past 3 months (0 pts) Confusion or Disorientation No (0 pts) Intoxicated or Sedated No (0 pts) Impaired Gait No (0 pts) Mobility Assist Device Used No (0 pt) Altered Elimination No (0 pt) Score/Fall Risk Level 0 - 2 = Low Risk Oriented to surroundings, Maintained a safe environment, Educated pt \\T\\ family on fall prevention, incl call for assistance when getting out of bed. Abuse screen: Denies threats or abuse. Denies injuries from another. Nutritional screening: No deficits noted. Tuberculosis screening: No symptoms or risk factors identified. Assessment: 16:30 Reassessment: see triage assessment. mb9 17:19 Reassessment: Patient appears in no apparent distress at this time. Patient and/or hb family updated on plan of care and expected duration. Pain level reassessed. Patient is alert, oriented x 3, equal unlabored respirations, skin warm/dry/pink. 18:06 Reassessment: No changes from previously documented assessment. Patient and/or family mb9 updated on plan of care and expected duration. Pain level reassessed. Patient is alert, oriented x 3, equal unlabored respirations, skin warm/dry/pink. 19:32 Reassessment: Patient appears in no apparent distress at this time. Patient and/or tm6 family updated on plan of care and expected duration. Pain level reassessed. Patient is alert, oriented x 3, equal unlabored respirations, skin warm/dry/pink. Pain: Denies pain. Vital Signs: 16:12 BP 120 / 74; Pulse 76; Resp 16; Temp 98.1(O); Pulse Ox 100% on R/A; Weight 65.77 kg; mb9 Height 5 ft. 7 in. ; Pain 8/10; 17:19 BP 124 / 72; Pulse 69; Resp 15; Pulse Ox 100% on R/A; hb 18:06 BP 113 / 81; Pulse 64; Resp 16; Pulse Ox 100% on R/A; mb9 18:50 BP 122 / 82; Pulse 86; Resp 16; Pulse Ox 100% on R/A; mb9 19:31 BP 111 / 75; Pulse 74; Resp 20; Temp 97.7(TE); Pulse Ox 100% on R/A; Pain 0/10; tm6 16:12 Body Mass Index 22.71 (65.77 kg, 170.18 cm) mb9 16:12 Pain Scale: Adult mb9 19:31 Pain Scale: Adult tm6 ED Course: 16:15 Patient arrived in ED. rg4 16:16 Alissa Bella FNP-C [facility]. kb 16:16 Hesham Jenkins MD is Attending Physician. kb 16:17 Mikayla Aragon RN is Primary Nurse. mb9 16:24 Patient has correct armband on for positive identification. Placed in gown. Bed in low hb position. Call light in reach. Side rails up X 1. Provided Education on: use of of call light. Client placed on continuous cardiac and pulse oximetry monitoring. NIBP monitoring applied. groundwater monitoring technician on. Pulse ox on. NIBP on. 16:24 EKG done, by ED staff, reviewed by Alissa DANGELO. Patient maintains SpO2 hb saturation greater than 95% on room air. 16:29 Triage completed. mb9 16:30 Arm band placed on. mb9 16:30 No provider procedures requiring assistance completed. mb9 16:30 Initial lab(s) drawn, by ED staff, sent to lab. Thermoregulation: warm blanket given to mb9 patient. 16:35 Inserted saline lock: 20 gauge in right antecubital area, using aseptic technique. mb9 Blood collected. 16:35 Troponin HS Sent. mb9 16:36 CBC with Diff Sent. mb9 16:36 CMP Sent. mb9 16:36 Lipase Sent. mb9 17:08 US Abdomen Limited In Process Unspecified. EDMS 17:39 XRAY Chest (1 view) In Process Unspecified. EDMS 19:03 Report given to Jose RN. mb9 19:32 IV discontinued, intact, bleeding controlled, No redness/swelling at site. Pressure tm6 dressing applied. Administered Medications: 16:30 Drug: NS 0.9% IV 1000 ml IV at 1 bolus Per protocol; 1000 mL bolus Route: IV; Rate: 1 mb9 bolus; Site: right antecubital; 18:07 Follow up: Response: No adverse reaction; IV Status: Completed infusion mb9 16:30 Drug: Famotidine IVP 20 mg IVP once; dilute with 10 mL 0.9% NaCl; give over 2 minutes mb9 Route: IVP; Site: right antecubital; 18:07 Follow up: Response: No adverse reaction mb9 16:32 Drug: Ondansetron IVP 4 mg IVP once; over 2 minutes Route: IVP; Site: right antecubital;mb9 18:07 Follow up: Response: No adverse reaction mb9 16:35 Drug: TORadol - Ketorolac IVP 15 mg IVP once Route: IVP; Site: right antecubital; mb9 18:07 Follow up: Response: No adverse reaction mb9 18:40 Drug: Decadron - Dexamethasone IVP 10 mg IVP once Route: IVP; Site: right antecubital; mb9 18:46 Drug: morphine IVP or IV 2 mg IVP once over 4 mins Route: IVP; Infused Over: 4 mins; mb9 Site: right antecubital; Medication: 16:30 VIS not applicable for this client. mb9 Outcome: 18:57 Discharge ordered by . kb 19:32 Discharged to home ambulatory, with family, tm6 19:32 Condition: stable 19:32 Discharge instructions given to patient, family, Instructed on discharge instructions, follow up and referral plans. medication usage, Demonstrated understanding of instructions, follow-up care, medications, Prescriptions given X 2, 19:34 Patient left the ED. tm6 Signatures: Dispatcher [employer] EDMS Alissa Bella, COMPOSITION WEATHERBOARD INSTALLER-C COMPOSITION WEATHERBOARD INSTALLER-Ria Henderson RN Hetal Barnard rg4 Mikayla Aragon RN RN mb9 Stephan Tierney RN RN tm6
--- NOTE | 2023-06-29 18:58 | EDPHYS ---
Physician Documentation [facility] Name: Steph Gr Age: 43 yrs Sex: Female : 1980 Arrival Date: 06/29/2023 Time: 16:13 Bed 2 Private MD: ED Physician Hesham Jenkins HPI: 06/28 20:09 This 43 yrs old Female presents to ER via Ambulatory with complaints of Chest Pain. kb 20:09 Patient is a 43-year-old female who presents for right upper quadrant pain that started kb this morning and was worse after eating. Denies nausea, vomiting, diarrhea, fever. States pain is just below right ribs. Reports increased pain with deep breath.. Historical: - Allergies: 16:25 No Known Allergies; hb - PMHx: 16:25 ADD/ADHD; Anxiety; Depression; Lupus; hb - Immunization history:: Adult Immunizations up to date. - Social history:: Smoking status: Patient denies any tobacco usage or history of. ROS: 20:08 Constitutional: As per HPI kb Exam: 20:08 Constitutional: This is a well developed, well nourished patient who is awake, alert, kb and in no acute distress. Head/Face: Normocephalic, atraumatic. ENT: Moist Mucous membranes Cardiovascular: Regular rate Respiratory: Respirations even and unlabored. No increased work of breathing. Talking in full sentences Skin: Warm, dry with normal turgor. Normal color. MS/ Extremity: Pulses equal, no cyanosis. Neurovascular intact. Full, normal range of motion. Neuro: Awake and alert, GCS 15, oriented to person, place, time, and situation. Moves all extremities. Normal gait. 20:08 Abdomen/GI: Inspection: abdomen appears normal, Bowel sounds: normal, Palpation: soft, in all quadrants, moderate abdominal tenderness, in the right upper quadrant, Vital Signs: 16:12 BP 120 / 74; Pulse 76; Resp 16; Temp 98.1(O); Pulse Ox 100% on R/A; Weight 65.77 kg; mb9 Height 5 ft. 7 in. ; Pain 8/10; 17:19 BP 124 / 72; Pulse 69; Resp 15; Pulse Ox 100% on R/A; hb 18:06 BP 113 / 81; Pulse 64; Resp 16; Pulse Ox 100% on R/A; mb9 18:50 BP 122 / 82; Pulse 86; Resp 16; Pulse Ox 100% on R/A; mb9 19:31 BP 111 / 75; Pulse 74; Resp 20; Temp 97.7(TE); Pulse Ox 100% on R/A; Pain 0/10; tm6 16:12 Body Mass Index 22.71 (65.77 kg, 170.18 cm) mb9 16:12 Pain Scale: Adult mb9 19:31 Pain Scale: Adult tm6 MDM: 16:16 Patient medically screened. kb 20:08 Differential diagnosis: Gastritis, GERD, ulcers, cholelithiasis, cholecystitis, biliary kb colic. Data reviewed: vital signs, nurses notes. Counseling: I had a detailed discussion with the patient and/or guardian regarding the historical points, exam findings, and any diagnostic results supporting the discharge/admit diagnosis, lab results, radiology results, the need for outpatient follow up, a lab tester, to return to the emergency department if symptoms worsen or persist or if there are any questions or concerns that arise at home. 06/28 16:22 Order name: CBC with Diff; Complete Time: 16:48 kb 06/28 16:22 Order name: CMP; Complete Time: 17:01 kb 06/28 16:22 Order name: Lipase; Complete Time: 17:01 kb 06/28 16:22 Order name: Urinalysis w/ reflexes; Complete Time: 17:54 kb 06/28 16:22 Order name: Troponin HS; Complete Time: 17:01 kb 06/28 16:22 Order name: US Abdomen Limited; Complete Time: 17:30 kb 06/28 16:22 Order name: XRAY Chest (1 view); Complete Time: 17:54 kb 06/28 16:22 Order name: EKG; Complete Time: 16:23 kb 06/28 16:22 Order name: IV Saline Lock; Complete Time: 16:27 kb 06/28 16:22 Order name: Labs collected and sent; Complete Time: 16:27 kb 06/28 16:22 Order name: EKG - Nurse/Tech; Complete Time: 16:27 kb Administered Medications: 16:30 Drug: NS 0.9% IV 1000 ml IV at 1 bolus Per protocol; 1000 mL bolus Route: IV; Rate: 1 mb9 bolus; Site: right antecubital; 18:07 Follow up: Response: No adverse reaction; IV Status: Completed infusion mb9 16:30 Drug: Famotidine IVP 20 mg IVP once; dilute with 10 mL 0.9% NaCl; give over 2 minutes mb9 Route: IVP; Site: right antecubital; 18:07 Follow up: Response: No adverse reaction mb9 16:32 Drug: Ondansetron IVP 4 mg IVP once; over 2 minutes Route: IVP; Site: right antecubital;mb9 18:07 Follow up: Response: No adverse reaction mb9 16:35 Drug: TORadol - Ketorolac IVP 15 mg IVP once Route: IVP; Site: right antecubital; mb9 18:07 Follow up: Response: No adverse reaction mb9 18:40 Drug: Decadron - Dexamethasone IVP 10 mg IVP once Route: IVP; Site: right antecubital; mb9 18:46 Drug: morphine IVP or IV 2 mg IVP once over 4 mins Route: IVP; Infused Over: 4 mins; mb9 Site: right antecubital; Disposition Summary: 06/29/23 18:57 Discharge Ordered Notes: Location: Home kb Condition: Stable kb Diagnosis - Upper abdominal pain, unspecified kb Followup: kb - With: Emergency Department - When: As needed - Reason: Worsening of condition Followup: kb - With: Private Physician - When: 2 - 3 days - Reason: Recheck today's complaints, Continuance of care, Re-evaluation by your physician Discharge Instructions: - Discharge Summary Sheet kb - Biliary Colic, Adult kb - Abdominal Pain, Adult, [id number] kb Forms: - Medication Reconciliation Form kb - Thank You Letter kb - Antibiotic Education kb - Prescription Opioid Use kb - Patient Portal Instructions kb - Leadership Thank You Letter kb Prescriptions: - Diclofenac Sodium 75 mg Oral tablet, delayed release (enteric coated) - take 1 tablet ORAL route 2 times per day As needed; 30 tablet; Refills: 0, kb Product Selection Permitted - dicyclomine 20 mg Oral tablet - take 1 tablet ORAL route 4 times per day As needed; 20 tablet; Refills: 0, kb Product Selection Permitted Signatures: Dispatcher [employer] Alissa Jacobs FNP-C FNP-Ria Henderson RN RN hb Breneman, Cori, RN RN mb9
[2023-06-29 19:51] VITALS: BP 111/75; TEMP 97.7; O2SAT 100
--- NOTE | 2023-07-02 14:25 | EKG ---
Test Date: 2023-06-29 Test Time: 16:11:49 Inclusion Teacher: MB MEASUREMENT RESULTS: Intervals: Rate: 77 CA: 118 QRSD: 90 QT: 366 QTc: 414 [place]: P: 63 CA: 118 QRS: 75 T: 74 INTERPRETIVE STATEMENTS: Normal sinus rhythm Normal ECG No previous ECG available for comparison Electronically Signed On 07-02-23 14:16:16 CDT by Rubens Ortiz
== END ==
LOC: ER 16:13
DX: R10.11 Right upper quadrant pain (principal)
CPT/HCPCS: 96361; 93005; 85025; 81001; 36415; 84484; 83690; 80053; 71045; 76705; 96375; 96374; 99285; J1100; J2270; J2405; J7030